=== PATIENT | male | born 1975 | race Caucasian/White ===

== ENCOUNTER 2018-11-09 11:43 | Emergency (ER) | payer MEDICAID ==
--- NOTE | 2018-11-09 11:54 | Emergency Department Record ---
History of Present Illness - General Chief Complaint: Ankle/Foot Injury Stated Complaint: TOE INJURY Time Seen by Provider: 11/09/18 11:48 Source: Patient Mode of Arrival: Ambulatory Limitations: No limitations - History of Present Illness Initial Comments: 43 yo male presents with a right great toe injury that occurred at 9am this morning. 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 A log fell directly onto his right great toe. The nail remained intact. No other injuries. No bleeding or break in the skin. He states his tetanus is up to date. -: Hour(s) (3) Injury: Foot: Right Type of Injury: Blunt Place: Work Severity: Moderate Improves With: Immobilization Worsens With: Movement, Palpation, Weight bearing Context: Direct blow - Related Data Home Medications Medication Instructions Recorded Confirmed Last Taken Omeprazole 40 mg PO DAILY 11/09/18 11/09/18 Unknown Allergies Allergy/AdvReac Type Severity Reaction Status Date / Time No Known Drug Allergies Allergy Verified 11/09/18 11:51 Review of Systems Constitutional: Denies: Chills, Fever, Malaise, Weakness Eyes: Denies: Eye discharge, Eye pain, Photophobia, Vision change ENT: Denies: Congestion Respiratory: Denies: Cough Cardiovascular: Denies: Chest pain, Palpitations, Syncope Endocrine: Denies: Fatigue Gastrointestinal: Denies: Abdominal pain, Diarrhea, Nausea, Vomiting Genitourinary: Denies: Dysuria, Frequency, Hematuria Musculoskeletal: Reports: As per HPI, Arthralgia Skin: Reports: As per HPI, Bruising Neurological: Denies: Confusion, Headache, Numbness, Tingling, Weakness Psychiatric: Denies: Anxiety Hematological/Lymphatic: Denies: Easy bleeding, Easy bruising Physical Exam - General General Appearance: Alert, Oriented x3, Cooperative, No acute distress Limitations: No limitations - Head Head exam: Atraumatic, Normocephalic, Normal inspection - Eye Eye exam: Normal appearance. negative: Conjunctival injection, Scleral icterus - ENT ENT exam: Normal exam Ear exam: Normal external inspection Nasal Exam: Normal inspection Mouth exam: Normal external inspection - Neck Neck exam: Normal inspection - Cardiovascular Peripheral Pulses: 2+: Dorsalis Pedis (R) - exam: Deferred - Extremities Extremities exam: Full ROM, Joint swelling, Normal capillary refill, Tenderness. negative: Normal inspection Image of Finger Tip: 1 - right great toe 2 - subungual hematoma about 1/4th nail, nail intact, distal tender with mild swelling, intact skin - Neurological Neurological exam: Alert, Oriented X3 - Psychiatric Psychiatric exam: Normal affect, Normal mood - Skin Skin exam: Dry, Intact, Normal color, Warm Course - Reevaluation(s) Reevaluation #1: 11/09/18 12:15 The XR was reviewed There is a linear lucency lateral proximal base of distal bone likely a non displaced fracture We discussed home care of toe fractures, reasons to return and close follow up Disposition Disposition: Discharge Clinical Impression: Toe fracture, right Contusion of toe, right Qualifiers: Encounter type: initial encounter Toe: great toe Damage to nail status: without damage Qualified Code(s): S90.111A - Contusion of right great toe without damage to nail, initial encounter Disposition: Home, Self-Care Condition: (1) Good Instructions: Toe Fracture (ED) Additional Instructions: Call your doctor for the next available follow up appointment in the next week if the pain worsens or any does not resolve Return to the ER for a recheck if worse, any new concerns or questions Review this ER visit and the tests performed with your family doctor Forms: Patient Portal Access Time of Disposition: 12:17 Quality - Quality Measures Quality Measures: N/A - Blood Pressure Screening Does Patient Have Any of the Following: No Blood Pressure Classification: Hypertensive Reading Systolic Measurement: 167 Diastolic Measurement: 110 Screening for High Blood Pressure: < Pre-Hypertensive BP, F/U Documented > [ [id number]] Pre-Hypertensive Follow-up Interventions: Referral to alternative/primary care provider.
--- NOTE | 2018-11-12 08:43 | RADIOLOGY REPORT ---
EXAM: RIGHT GREAT TOES HISTORY: DROPPED LOG ON GREAT TOE THIS MORNING. SWELLING AND BRUISING. TECHNIQUE: Three views of the right great toe were obtained. Comparison: None. Encounter: Initial. FINDINGS: There is a normal variant ossicle at the medial margin of the first IP joint associated with minor valgus deformity of this joint. Subtle linear lucency is noted to involve the anterolateral aspect of the first distal phalanx base consistent with nondisplaced fracture. There may also be longitudinally oriented nondisplaced fracture of the distal aspect of the first distal phalanx. There is soft tissue swelling throughout the great toe. No other osseous nor joint abnormality is seen. IMPRESSION: 1. NONDISPLACED FRACTURE OF THE LATERAL ASPECT AT THE BASE OF THE FIRST DISTAL PHALANX. SUBTLE LONGITUDINALLY ORIENTED LINEAR LUCENCY INVOLVING THE DISTAL ASPECT OF THE FIRST DISTAL PHALANX ALSO PRESENT WITH NONDISPLACED FRACTURE NOT EXCLUDED. 2. NORMAL VARIANT OSSICLE NEAR THE MEDIAL MARGIN OF THE FIRST IP JOINT. JOB NUMBER: [id number] [facility]
== END 2018-11-09 12:33 | disposition home or self-care (01) ==
LOC: ER 11:43
DX: S92.414A Nondisplaced fracture of proximal phalanx of right great toe, initial encounter for closed fracture (principal); S90.111A Contusion of right great toe without damage to nail, initial encounter; W22.8XXA Striking against or struck by other objects, initial encounter; Y93.H9 Activity, other involving exterior property and land maintenance, building and construction; Y99.0 Civilian activity done for income or pay
CPT/HCPCS: 73660; 99283